=== PATIENT | female | born 1960 | race Caucasian/White ===

== ENCOUNTER 2016-08-30 17:02 | Emergency (ER) | payer OTHER ==
[~2016-08-30] VITALS: Ht 157.5 cm; Wt 84.0 kg
[~2016-08-30 17:02] MED LIST: ESOM20CA PO; HYDR12.56 PO; IBUP-1450 PO; LSN40 PO
[2016-08-30 17:05] VITALS: Ht 157.5 cm; Wt 84.0 kg
[2016-08-30] MEDS ORDERED: LISI40TA PO (17:55)
[2016-08-30] MEDS ORDERED: PRLSR20 PO (17:55)
[2016-08-30] MEDS ORDERED: ALPR1TAB3 PO (18:08)
[2016-08-30] MEDS ORDERED: METF1TAB85 PO (18:08)
--- NOTE | 2016-08-30 18:11 | EMERGENCY ROOM VISIT NOTE ---
ED Visit Note First contact with patient: 17:12 CHIEF COMPLAINT: Foot pain HISTORY OF PRESENT ILLNESS: This 56-year-old female patient presents to the emergency department ambulatory complaining of left foot pain. The patient states that both of her feet have been sore after working for the past several weeks. Over the past 1 week, she has had increasing pain in the left foot. The pain is located on the outside of the foot. She denies any specific injury to the foot at the onset of pain, but does state that she twisted the foot slightly walking out of a car yesterday, causing the pain to worsen. She rates the discomfort an 8/10. She has not recently changed shoes. She denies any significant swelling, bruising, redness or warmth of the foot. She has not been taking any medications at home for the pain. She denies any pain of the ankle. No previous injuries or surgeries to this foot. No numbness or weakness. REVIEW OF SYSTEMS: GENERAL: A 6 system review of systems was completed with positives and pertinent negatives in the HPI. ALLERGIES: See EMR MEDICATIONS: See med list PMH: Diabetes, asthma, hyperlipidemia SOCIAL HISTORY: The patient lives locally with her family. She is a smoker. She denies alcohol use. PHYSICAL EXAM: Vital Signs: Reviewed Nurse's notes, vital signs stable. GENERAL : This is a 56-year-old female, in no acute distress, but appears in pain, well- developed, well-nourished. MUSCULOSKELETAL: There is no visual deformity of the left foot. There is no erythema or ecchymosis. There is no warmth. There is no significant swelling. There is tenderness over the area of the fifth metatarsal. There is no tenderness over the lateral or medial malleolus. No tenderness of the tib/fib. The range of motion of the ankle is full. There is no tenderness over the plantar fascia. The skin is intact and there are no lacerations or puncture wounds. Dorsalis pedis pulse 2+. Capillary refill less than 2 seconds. RADIOGRAPHIC FINDINGS: LEFT FOOT MIN 3 VIEWS ROUTINE CLINICAL HISTORY: Lateral left foot pain. No recent trauma. COMPARISON: Left foot radiographs October 18, 2008. FINDINGS: The tarsometatarsal joints are intact. There is moderate plantar calcaneal spurring. No acute fracture is identified within the left foot by radiography. There is no evidence for stress fracture by radiography. There is mild arthritis within several articulations of the left foot. IMPRESSION: 1. No acute fracture or dislocation of the left foot. No radiographic evidence of a stress fracture. 2. Moderate plantar calcaneal spurring. 3. Mild arthritis within several articulations of the left foot. EMERGENCY DEPARTMENT COURSE: I examined the patient. An X-ray of the left foot was reviewed by myself and radiology and reveals mild arthritis, but no acute fractures or evidence of stress fracture. The patient was placed in a postoperative shoe. She was encouraged to use anti-inflammatories at home and follow-up with orthopedics for further evaluation of her foot pain. She verbalized understanding of my assessment and treatment plan. The patient was discharged home in good condition. DIAGNOSIS: Foot pain Problem List Medical Problems: (1) Anxiety Status: Chronic (2) Asthma, Unspecified Status: Chronic (3) Chronic Liver Dis Nec Status: Chronic (4) Diab Kaela Wo Compl, Type Ii Or Unspec Type, Not Uncntrld Status: Chronic (5) Esophageal Reflux Status: Chronic (6) Hyperlipidemia Nec/Nos Status: Chronic (7) Hypertension Nos Status: Chronic Current/Historical Medications Scheduled Alprazolam (Xanax), 1 MG PO BID Hydrochlorothiazide (Hctz), 12.5 MG PO DAILY Lisinopril (Zestril), 40 MG PO DAILY Metformin Hcl (Metformin Hcl Er), 1,000 MG PO BID Omeprazole (Prilosec), 20 MG PO DAILY Scheduled PRN Ibuprofen (Motrin), 600 MG PO BID PRN for Pain Allergies Coded Allergies: Iodinated Contrast Media (Verified Allergy, Intermediate, EARS SWELLED; PASSED OUT, 08/02/15) Cephalosporins (Verified Allergy, Unknown, "TO LONG AGO", 08/02/15) Ezetimibe (Verified Allergy, Unknown, NOT TOLERATED, 08/02/15) Penicillins (Verified Allergy, Unknown, SINCE , UNKNOWN REACTION, ) Statins (Verified Adverse Reaction, Mild, CRAMPING; NAUSEA, 08/02/15) Vital Signs Date Time Temp Pulse Resp B/P Pulse Ox O2 Delivery O2 Flow Rate FiO2 08/30/16 18:47 37.0 101 18 128/81 95 08/30/16 18:46 101 18 128/81 95 Room Air 08/30/16 17:05 37.0 109 18 133/84 95 Room Air Departure Information Impression Primary Impression: Foot pain Dispostion Home / Self-Care Condition GOOD Referrals Orlando Kaufman M.D. (PCP) Yan Covarrubias, DO Patient Instructions [facility] Additional Instructions For pain control, you can use the following [id number] medicines (if >12 yo): - Regular strength (325mg/tab) Tylenol (acetaminophen) 2 tabs every 4-6 hours as needed. Do not exceed 12 tablets in a 24 hour period. Avoid taking more than 4 grams (4000 mg) of Tylenol per day. This includes any other sources of acetaminophen you may take on a regular basis. - Regular strength (200 mg/tab) Advil (ibuprofen) 1-2 tabs every 4-6 hours as needed. Do not exceed a dose of 3200 mg per day. Follow-up with orthopedics for further evaluation of your foot pain. Wear the postoperative shoe as needed for your left foot pain.
--- NOTE | 2016-08-30 18:22 | DIAGNOSTIC IMAGING REPORT ---
LEFT FOOT MIN 3 VIEWS ROUTINE CLINICAL HISTORY: Lateral left foot pain. No recent trauma. COMPARISON: Left foot radiographs October 18, 2008. FINDINGS: The tarsometatarsal joints are intact. There is moderate plantar calcaneal spurring. No acute fracture is identified within the left foot by radiography. There is no evidence for stress fracture by radiography. There is mild arthritis within several articulations of the left foot. IMPRESSION: 1. No acute fracture or dislocation of the left foot. No radiographic evidence of a stress fracture. 2. Moderate plantar calcaneal spurring. 3. Mild arthritis within several articulations of the left foot. Electronically signed by: Guy Sepulveda M.D. 08/30/2016 6:21 PM Dictated Date/Time: 08/30/2016 6:18 PM
[2016-08-30 18:47] VITALS: BP 128/81; PULSE 101; TEMP 37; O2SAT 95
[2016-11-20] MEDS ORDERED: VITAMIN B12 INJ (13:35)
[2016-11-20] MEDS ORDERED: HYDR25TA5 PO (13:35)
[2016-11-20] MEDS ORDERED: MTR/600 PO (13:38)
== END 2016-08-30 18:48 | disposition home or self-care (01) ==
LOC: C.EDB 17:03 → C.EDD 18:48
DX: M79.672 Pain in left foot (principal); F17.200 Nicotine dependence, unspecified, uncomplicated; E11.9 Type 2 diabetes mellitus without complications; J45.909 Unspecified asthma, uncomplicated; E78.5 Hyperlipidemia, unspecified; I10 Essential (primary) hypertension

== ENCOUNTER 2016-10-09 07:09 | Emergency (ER) | payer OTHER ==
[~2016-10-09] VITALS: Ht 157.5 cm; Wt 79.7 kg
[~2016-10-09 07:09] MED LIST changes: +ALPR1TAB3 PO; -ESOM20CA PO; +LISI40TA PO; -LSN40 PO; +METF1TAB85 PO; +PRLSR20 PO
[2016-10-09 07:11] VITALS: TEMP 36.4; Ht 157.5 cm; Wt 79.7 kg
--- NOTE | 2016-10-09 08:39 | DIAGNOSTIC IMAGING REPORT ---
RIGHT KNEE 3 VIEWS CLINICAL HISTORY: Right knee pain. Trauma. COMPARISON: None. DISCUSSION: No acute fractures are visualized. There are mild osteoarthritic changes. There is a small dorsal patellar spur. There is minimal medial joint compartment spurring. IMPRESSION: Mild degenerative change. No acute fractures or dislocations identified. Electronically signed by: Chip Mirza M.D. 10/09/2016 8:38 AM Dictated Date/Time: 10/09/2016 8:37 AM
--- NOTE | 2016-10-09 08:57 | DIAGNOSTIC IMAGING REPORT ---
RIGHT LOWER EXTREMITY VENOUS DOPPLER HISTORY: RIGHT LEG PAIN Right COMPARISON STUDY: Venous Doppler 11/19/2014. FINDINGS: There is normal compressibility, flow, and augmentation within the right lower extremity deep venous system. IMPRESSION: No DVT within the right lower extremity Electronically signed by: Vimal Damon M.D. 10/09/2016 8:56 AM Dictated Date/Time: 10/09/2016 8:55 AM
[2016-10-09 09:20] VITALS: BP 126/71; PULSE 73; O2SAT 100
[2016-10-09] MEDS ORDERED: TRAM-10 PO ×2 (09:43→09:47)
--- NOTE | 2016-10-09 09:45 | EMERGENCY ROOM VISIT NOTE ---
ED Visit Note First contact with patient: 07:14 CHIEF COMPLAINT: Pain behind right knee since last night HISTORY OF PRESENT ILLNESS: Patient is a 56-year-old white female who presents emergency department for evaluation of right leg pain. She states that her symptoms started last evening. She has been noticing pain in her feet bilaterally for some time. 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 Yesterday she states that she was laying in her chair in the evening when she noticed an aching pain behind her right knee. She felt a "numb " feeling in her right lower leg, particularly in her foot. She also describes it as feeling like her foot was "on fire." She feels like the pain is tight in her leg once to staff. She took a baby aspirin. She states the pain was worse when she walks up the steps to go to bed and when she tried to bear weight. She denies any anterior knee pain or swelling. She does report a history of lumbar degenerative disc disease, but states that this primarily causes her back pain, and the pain she is expressing presently is not consistent with her prior back pain or sciatica. She states that she did have one epidural steroid injection and did PT and stretching exercises. She denies any falls, direct trauma to the right leg or any unusual activity prior to the onset of her pain. She denies noticing any significant swelling. She denies any thigh pain. She has no symptoms in the left leg. She denies chest pain, palpitations or shortness of breath. She is a smoker. No oral contraceptives or HRT. There has not been a long period of immobilization or long car or plane ride recently. There is no history of blood clots in the veins of the legs. She rates her pain an 8/10. REVIEW OF SYSTEMS: Review of systems as per HPI. All other systems reviewed were negative. 10 systems reviewed. PMH: Electronic medical records are reviewed and summarized as above/below. See Problem List. SOCIAL HISTORY: Patient lives at home. Smoker. Lives with her . 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 PHYSICAL EXAM: Vital Signs: Reviewed Nurse's notes. CONSTITUTIONAL: Patient is a well-appearing 56-year-old white female who is awake and alert and in no acute distress. HEART: Regular rate and rhythm without murmurs, ectopy, gallops, or rubs. LUNGS: Clear to auscultation and breath sounds equal, no wheezes, rales, or rhonchi. ABDOMEN: Soft, non-tender, no hepatosplenomegaly, or masses. NEUROLOGICAL: Alert oriented, coherent. PERRL, EOMs full, gait normal. EXTREMITIES: No cyanosis, edema, joint tenderness or effusion. Pulses equal bilaterally. Examination of the right knee does not note any prepatellar soft tissue swelling. No intra-articular joint effusion is palpable. No increased warmth or induration noted. She did not have any pain over the anterior portion of the knee. No peripatellar tenderness or crepitus. No medial or lateral joint line tenderness. She has pain on palpation of the popliteal space , but no obvious fullness or deformity. The range of motion is full. The calf is soft, just slightly tender proximally. Ankle is nontender to palpation. Distal pulses are easily palpable. Lower extremity DTRs are equal and symmetrical bilaterally. There is no edema. No cyanosis. No lymphangitic streaking. EMERGENCY DEPARTMENT COURSE: X-rays of the right knee and ultrasound of the right lower extremity were obtained. Patient declined analgesia. Ultrasound did not demonstrate DVT. X-ray of the knee noted mild degenerative changes. Differential diagnoses entertained included DVT, superficial thrombus phlebitis , cellulitis, gouty arthropathy, internal derangement of the right knee, degenerative joint disease, peripheral neuropathy, lumbar radiculopathy, among others. The patient was encouraged to continue the ibuprofen. She was given a prescription for Ultram. She notes that she is an appointment this afternoon at her primary care provider's office for hand pain. She is encouraged to keep this appointment. Patient was reviewed in the [facility] Prescription Drug Monitoring Program, and there were no red flags noted. RIGHT LOWER EXTREMITY VENOUS DOPPLER HISTORY: RIGHT LEG PAIN Right COMPARISON STUDY: Venous Doppler 11/19/2014. FINDINGS: There is normal compressibility, flow, and augmentation within the right lower extremity deep venous system. IMPRESSION: No DVT within the right lower extremity RIGHT KNEE 3 VIEWS CLINICAL HISTORY: Right knee pain. Trauma. COMPARISON: None. DISCUSSION: No acute fractures are visualized. There are mild osteoarthritic changes. There is a small dorsal patellar spur. There is minimal medial joint compartment spurring. IMPRESSION: Mild degenerative change. No acute fractures or dislocations identified. Problem List Medical Problems: (1) Anxiety Status: Chronic (2) Asthma, Unspecified Status: Chronic (3) Back pain Status: Chronic (4) Cephalgia Status: Resolved (5) Chronic Liver Dis Nec Status: Chronic (6) Diab Kaela Wo Compl, Type Ii Or Unspec Type, Not Uncntrld Status: Chronic (7) Esophageal Reflux Status: Chronic (8) Hyperlipidemia Nec/Nos Status: Chronic (9) Hypertension Nos Status: Chronic (10) Weakness Status: Resolved Current/Historical Medications Scheduled Alprazolam (Xanax), 1 MG PO BID Hydrochlorothiazide (Hctz), 12.5 MG PO DAILY Lisinopril (Zestril), 40 MG PO DAILY Metformin Hcl (Metformin Hcl Er), 1,000 MG PO BID Omeprazole (Prilosec), 20 MG PO DAILY Scheduled PRN Ibuprofen (Motrin), 600 MG PO BID PRN for Pain Tramadol (Ultram), 1-2 TAB PO Q4H PRN for Pain Allergies Coded Allergies: Iodinated Contrast Media (Verified Allergy, Intermediate, EARS SWELLED; PASSED OUT, 10/09/16) Cephalosporins (Verified Allergy, Unknown, "TO LONG AGO", 10/09/16) Ezetimibe (Verified Allergy, Unknown, NOT TOLERATED, 10/09/16) Penicillins (Verified Allergy, Unknown, SINCE , UNKNOWN REACTION, ) Statins (Verified Adverse Reaction, Mild, CRAMPING; NAUSEA, 10/09/16) Vital Signs Date Time Temp Pulse Resp B/P Pulse Ox O2 Delivery O2 Flow Rate FiO2 10/09/16 09:20 73 18 126/71 100 10/09/16 07:11 36.4 100 18 157/91 96 Room Air Departure Information Impression Primary Impression: Leg pain, right Prescriptions Tramadol (Ultram) 50 Mg Tab 1-2 TAB PO Q4H Y for Pain, #20 TAB For Initial Treatment Prov: Milagros Elizalde PA 10/09/16 Referrals Orlando Kaufman M.D. (PCP) Patient Instructions My [facility] Additional Instructions Tramadol (Ultram) 50mg: Take 1-2 pills every four hours for breakthrough pain. Avoid alcohol, operating machinery or dangerous equipment, working on ladders or roofs, DRIVING, or situations where being under the influence may be dangerous. It is recommended to use an [id number] stool softener such as Colace, 100mg twice daily while taking this medication to avoid constipation. . Ibuprofen(Motrin, Advil) may be used for fever or pain. Use 600mg every six hours as needed. Take with food. Avoid using more than 2400mg in a 24 hour period. Do not use 2400mg per day for more than three consecutive days without physician direction. Prolonged inappropriate use can lead to stomach upset or ulcers. This medication can be taken if you need to drive, work, or perform activities which may be dangerous when taking narcotic pain medication. (AND/OR) Acetaminophen(Tylenol) may be used for fever or pain. Use 1000mg every six hours as needed. Avoid using more than 3000mg in a 24 hour period. This medication can be taken if you need to drive, work, or perform activities which may be dangerous when taking narcotic pain medication. Ice compresses for 20 minutes at a time four times daily for 2-3 days. Rest and elevate your injury. Continue current medications. Return to the ER immediately for any numbness, tingling, severe pain, extreme swelling in the extremity or as needed. Follow-up with her primary care for a scheduled today, and with orthopedics as scheduled next week.
[2016-11-20] MEDS ORDERED: VITAMIN B12 INJ (13:35)
[2016-11-20] MEDS ORDERED: HYDR25TA5 PO (13:35)
[2016-11-20] MEDS ORDERED: MTR/600 PO (13:38)
== END 2016-10-09 09:55 | disposition home or self-care (01) ==
LOC: C.EDB 07:10 → C.EDA 09:55
DX: M79.604 Pain in right leg (principal); F41.9 Anxiety disorder, unspecified; J45.909 Unspecified asthma, uncomplicated; M54.9 Dorsalgia, unspecified; G89.29 Other chronic pain; K76.9 Liver disease, unspecified; E11.9 Type 2 diabetes mellitus without complications; K21.9 Gastro-esophageal reflux disease without esophagitis; E78.5 Hyperlipidemia, unspecified; I10 Essential (primary) hypertension; Z79.899 Other long term (current) drug therapy; F17.210 Nicotine dependence, cigarettes, uncomplicated

== ENCOUNTER → 2016-10-12 | Outpatient (CLI) | payer OTHER ==
[~2016-10-12] MED LIST changes: +CYAN10005 PO; +HYDR25TA5 PO; +KETO10TA PO; +METF-384 PO; +MTR/600 PO; +NXM/40 PO; +TRAM-10 PO; +VITAMIN B12 INJ
[2016-10-12 17:40] LABS: HEMATOCRIT 37.5 % (37-47); MEAN CELL VOLUME 83.9 fL (80-100); MEAN CORPUSCULAR HEMOGLOBIN 27.5 pg (25-34); MEAN CORPUSCULAR HGB CONC 32.8 g/dl (32-36); MEAN PLATELET VOLUME 10.8 fL (7.4-10.4); PLATELET COUNT 308 K/uL (130-400); RED BLOOD COUNT 4.47 M/uL (4.2-5.4); WHITE BLOOD COUNT 9.18 K/uL (4.8-10.8)
[2016-10-12 17:41] LABS: ALT/SGPT 23 U/L (12-78); BLOOD UREA NITROGEN 16 mg/dl (7-18); CALCIUM 9.5 mg/dl (8.5-10.1); CARBON DIOXIDE 29 mmol/L (21-32); CHLORIDE 105 mmol/L (98-107); CHOLESTEROL 235 mg/dl (0-200); CREATININE 0.82 mg/dl (0.60-1.20); GLUCOSE 82 mg/dl (70-99); SODIUM 142 mmol/L (136-145); TRIGLYCERIDES 149 mg/dl (0-150); VERY LOW DENSITY LIPOPROT CALC 30 mg/dl
[2016-10-12 17:50] LABS: ALB/GLOB RATIO 1.2 (0.9-2); ALKALINE PHOSPHATASE 72 U/L (45-117); AST/SGOT 19 U/L (15-37); CHOLESTEROL/HDL RATIO 4.4; HDL CHOLESTEROL 53 mg/dl; LDL CHOLESTEROL CALCULATED 152 mg/dl
[2016-10-12 18:08] LABS: BASO % 0.4 %; BASO ABS # 0.04 K/uL (0-0.2); COMPLETE YES; EOS % 2.3 %; IG% 0.1 %; LYMPH % 44.7 %; MONO % 4.8 %; NEUT % 47.7 %
[2016-10-13 06:55] LABS: HYPERSEGMENTED POLYS 1+
[2016-10-13 10:19] LABS: ESTIMATED AVERAGE GLUCOSE 143 mg/dl; HA1C FLAG Normal (Normal)
== END | disposition home or self-care (01) ==
LOC: C.LABBFT 15:45
PROVIDERS: ATTEND Physician Assistant Medical
DX: R20.0 Anesthesia of skin (principal); E11.9 Type 2 diabetes mellitus without complications

== ENCOUNTER → 2016-10-20 | Outpatient (CLI) | payer OTHER ==
[2016-10-20 18:08] LABS: LYME DISEASE AB IGG NEG (NEG); LYME DISEASE AB IGM NEG (NEG)
== END | disposition home or self-care (01) ==
LOC: C.LABBFT 15:28
PROVIDERS: ATTEND Physician Assistant Medical
DX: M79.673 Pain in unspecified foot (principal)

== ENCOUNTER → 2016-11-17 | Outpatient (CLI) | payer OTHER | END | disposition home or self-care (01) | LOC: C.LABBFT 12:11 | PROVIDERS: ATTEND Physician Assistant Medical | DX: E53.8 Deficiency of other specified B group vitamins (principal) ==

== ENCOUNTER → 2016-11-26 | Outpatient (CLI) | payer OTHER ==
[~2016-11-26] MED LIST changes: -HYDR12.56 PO; -IBUP-1450 PO; -TRAM-10 PO
[2016-11-26 12:33] LABS: CALCIUM 9.8 mg/dl (8.5-10.1)
[2016-11-26 12:42] LABS: BLOOD UREA NITROGEN 13 mg/dl (7-18); BUN/CREATININE RATIO 16.8 (10-20); CARBON DIOXIDE 29 mmol/L (21-32); CHLORIDE 103 mmol/L (98-107); CREATININE 0.79 mg/dl (0.60-1.20); GLUCOSE 111 mg/dl (70-99); POTASSIUM 3.9 mmol/L (3.5-5.1); SODIUM 141 mmol/L (136-145)
== END | disposition home or self-care (01) ==
LOC: C.LABBFT 11:01
PROVIDERS: ATTEND Nurse Practitioner
DX: R00.2 Palpitations (principal)

== ENCOUNTER → 2016-12-17 | Outpatient (CLI) | payer OTHER | END | disposition home or self-care (01) | LOC: C.LABBFT 15:19 | PROVIDERS: ATTEND Physician Assistant Medical | DX: E53.8 Deficiency of other specified B group vitamins (principal) ==

== ENCOUNTER 2017-03-23 08:22 | Emergency (ER) | payer SELFPAY ==
[~2017-03-23] VITALS: Ht 157.5 cm; Wt 83.2 kg
[~2017-03-23 08:22] MED LIST changes: -CYAN10005 PO; -KETO10TA PO; -METF-384 PO; -NXM/40 PO
[2017-03-23 08:29] VITALS: TEMP 36.8; Ht 157.5 cm; Wt 83.2 kg
[2017-03-23] MEDS ORDERED: CYAN10005 PO (08:46)
[2017-03-23] MEDS ORDERED: METF-384 PO (08:46)
[2017-03-23] MEDS ORDERED: NXM/40 PO (08:46)
[2017-03-23] MEDS ORDERED: DiphenhydrAMINE HCL 50 MG/ML VIAL IV STA (09:25)
[2017-03-23] MEDS ORDERED: METOCLOPRAMIDE HCL INJ 5 MG/ML 2 ML VIAL IM STA (09:25)
[2017-03-23] MEDS ORDERED: SODIUM CHLORIDE 0.9% 1000ML 1,000 ML IV STA (09:25)
[2017-03-23] MEDS ORDERED: KETOROLAC TROMETHAMINE 30 MG/ML VIAL IV STA (09:25)
--- NOTE | 2017-03-23 09:45 | DIAGNOSTIC IMAGING REPORT ---
CT SCAN OF THE BRAIN WITHOUT IV CONTRAST CLINICAL HISTORY: Headache. COMPARISON STUDY: CT of the brain dated 08/02/2015. TECHNIQUE: Unenhanced axial CT scan of the brain is performed from the vertex to the skull base. CT DOSE: 537.48 mGy.cm FINDINGS: Brain parenchyma: The brain parenchyma is normal in appearance. There is no hemorrhage, mass effect, or evidence of acute territorial ischemia by CT criteria. Lowe-white matter is preserved. No extra-axial fluid collection is seen. Ventricles, sulci, cisterns: Normal in configuration. Intracranial vasculature: There is mild atherosclerotic calcification of the cavernous carotid arteries. Calvarium: Unremarkable. Sinuses and mastoids: The visualized paranasal sinuses are clear. The mastoid air cells are well pneumatized. Orbits: The bony orbits are grossly intact. IMPRESSION: No acute intracranial abnormality. Electronically signed by: Pedro Mendez M.D. 03/23/2017 9:44 AM Dictated Date/Time: 03/23/2017 9:42 AM
[2017-03-23 09:50] LABS: URINE APPEARANCE CLEAR (CLEAR); URINE BILIRUBIN NEG (NEG); URINE COLOR YELLOW; URINE EPITHELIAL CELL AUTO 20-30 /lpf (0-5); URINE NITRITE NEG (NEG); URINE PH 5.5 (4.5-7.5); URINE SPECIFIC GRAVITY 1.014 (1.000-1.030); UROBILINOGEN NEG (NEG)
[2017-03-23 09:51] LABS: BASO % 0.7 %; BASO ABS # 0.06 K/uL (0-0.2); COMPLETE YES; EOS % 2.5 %; IG% 0.2 %; LYMPH % 29.1 %; LYMPH ABS # 2.63 K/uL (1.2-3.4); MEAN CELL VOLUME 87.6 fL (80-100); MEAN CORPUSCULAR HEMOGLOBIN 27.4 pg (25-34); MEAN CORPUSCULAR HGB CONC 31.3 g/dl (32-36); MEAN PLATELET VOLUME 11.4 fL (7.4-10.4); MONO % 6.2 %; NEUT % 61.3 %; PLATELET COUNT 278 K/uL (130-400); RED BLOOD COUNT 4.34 M/uL (4.2-5.4); WHITE BLOOD COUNT 9.05 K/uL (4.8-10.8)
[2017-03-23 10:00] LABS: BUN/CREATININE RATIO 21.2 (10-20); CREATININE 0.69 mg/dl (0.60-1.20); POTASSIUM 3.9 mmol/L (3.5-5.1)
[2017-03-23 10:08] LABS: MANUAL MICROSCOPIC REQUIRED? NO; REVIEW REQ? NO
[2017-03-23 10:37] LABS: LYME DISEASE AB IGG NEG (NEG); LYME DISEASE AB IGM NEG (NEG)
[2017-03-23] MEDS ORDERED: KETO10TA PO (11:04)
[2017-03-23 11:16] VITALS: BP 127/69; PULSE 74; O2SAT 99
--- NOTE | 2017-03-24 12:49 | EMERGENCY ROOM VISIT NOTE ---
ED Visit Note First contact with patient: 08:59 CHIEF COMPLAINT: I've had a severe headache for 5 days. HISTORY OF PRESENT ILLNESS: Ms. Jerez is a 59 year-old white female who ambulates into the ED accompanied by male friend complaining of a occipital headache. She reports a gradual onset of a severe headache that started approximately 5 days ago. The pain is constant and it is slowly increasing in severity. She denies previous similar headaches or history of headaches but does report this is the worst headache of her life. Currently she describes her discomfort as an achy sensation. It is located bilaterally but more prominent on the right. She rates her discomfort 10/10. She reports radiation down into the cervical spine to the level of C5. Her pain worsens with palpation and seems more prominent in the morning. She has been taken 600 mg of ibuprofen with mild relief of her discomfort but then she reports it returns. Associated with her pain she reports she feels like she is having neck weakness and sometimes feels like she has to hold up her head on her neck and feels like her neck is stiff. She also reports she has some paresthesias in the hands but reports she's had this previously from vitamin B- 12 deficiency; she has not had her B12 blood levels evaluated recently. She denies recent trauma, skin eruptions, skin color changes, fevers, chills, sweats, upper respiratory tract symptoms, sore throat, dental work/dental trauma , sinus congestion, visual changes, hearing changes, difficulty speaking, difficulty swallowing, difficulty ambulating/coronary body movements, upper respiratory tract symptoms abdominal pain, nausea/vomiting, lower back pain, extremity weakness, dizziness, lightheadedness, insect bites.. REVIEW OF SYSTEMS: As noted above in History of Present Illness; all body systems reviewed with the patient and found to be negative unless noted above. PAST MEDICAL HISTORY: (1) Anxiety (2) Asthma, Unspecified (3) Back pain (4) Cephalgia (5) Chronic Liver Dis Nec (6) Diab Kaela Wo Compl, Type Ii Or Unspec Type, Not Uncntrld (7) Esophageal Reflux (8) Hyperlipidemia Nec/Nos (9) Hypertension Nos (10) Weakness CURRENT MEDICATIONS: Medications Dose Route/Sig Max Daily Dose Days Date Category Vitamin B-12 (Cyanocobalamin) 1,000 Mcg Tab 1,000 Mcg PO DAILY 03/23/17 Reported Nexium (Esomeprazole Magnesium) 40 Mg Capcr 40 Mg PO DAILY 03/23/17 Reported Glucophage (Metformin Hcl) 1,000 Mg Tab 1,000 Mg PO BID 03/23/17 Reported Ibuprofen 600 Mg Tab 600 Mg PO Q8H PRN 11/20/16 Reported Hydrochlorothiazide 25 Mg Tab 25 Mg PO QAM 11/20/16 Reported Zestril (Lisinopril) 40 Mg Tab 40 Mg PO QAM 08/30/16 Reported Xanax (Alprazolam) 1 Mg Tab 1 Mg PO BID 10/04/13 Reported ALLERGIES TO MEDICATIONS: Cephalosporins, IV contrast, penicillin, statins, ezetimibe. SOCIAL HISTORY: Patient is currently employed; she feels safe in her home environment; she admits to tobacco use and denies alcohol use.. PHYSICAL EXAM: Vital Signs: Date Time Temp Pulse Resp B/P (MAP) Pulse Ox O2 Delivery O2 Flow Rate FiO2 03/23/17 11:16 74 16 127/69 99 Room Air 03/23/17 09:58 155/85 03/23/17 09:03 76 03/23/17 08:29 36.8 85 16 148/85 97 Room Air GENERAL: 57 year-old white female in moderate distress due to pain, afebrile and hemodynamically stable. NEUROLOGIC: Awake, alert and oriented to person place and time. Answering questions appropriately and following commands. Cranial nerves II-XII grossly intact. Good short-term and long-term recall. Cranial nerves II through XII grossly intact. Normal gait. Good hand eye coordination. SKIN: Warm, dry and pink. No rashes, lesions or soft tissue trauma noted. HEENT: Normocephalic, atraumatic. Skull: No bony deformity, bony crepitus or ecchymosis. Mild tenderness over the occipital skull. No raccoon's eyes or richey signs. No drainage in the ears and air; no hemotympanum. Face: No bony tenderness, swelling or ecchymosis. PERRLA. EOMI without nystagmus. Funduscopic examination is unremarkable with a normal-appearing optic disc and no signs of increased intercranial pressure. Sclera is white and conjunctiva pink without drainage. No nasal drainage. Oral cavity is moist and pink. There is mild dental decay but no signs of abscess. Airway is patent. Speech normal and clear. Trachea midline. No JVD. NECK: Mild tenderness throughout the paraspinous muscles and bony structures of the cervical spine. I do not appreciate any bony deformity, bony crepitus or step-offs. I do not appreciate any muscle spasm. I do not appreciate any meningismus. Decreased range of motion in all movements due to pain. No CVA tenderness. No bony thoracic or lumbar tenderness. THORAX: Lungs clear to auscultation and equal bilaterally with no wheezing, crackles, rhonchi or stridor and equal chest wall movements. HEART: Regular rate and rhythm with no murmurs, rubs or gallops. ABDOMEN: Soft and nontender with bowel sounds present in all quadrants; no rigidity, rebound tenderness, organomegaly or guarding. MUSCULOSKELETAL: Full range of motion of all joints without any significant discomfort and the gait is normal. ED COURSE: Patient is assessed with history and physical examination. Patient's medication list was reviewed. Laboratory Testing: Test 03/23/17 08:44 03/23/17 08:56 Range/Units Urine Color YELLOW Urine Appearance CLEAR CLEAR Urine pH 5.5 4.5-7.5 Urine Specific [place] 1.014 1.000-1.030 Urine Protein NEG NEG Urine Glucose (UA) NEG NEG Urine Ketones NEG NEG Urine Occult Blood TRACE NEG Urine Nitrite NEG NEG Urine Bilirubin NEG NEG Urine Urobilinogen NEG NEG Urine Leukocyte Esterase NEG NEG Urine WBC (Auto) 1-5 0-5 /hpf Urine RBC (Auto) 0-4 0-4 /hpf Urine Hyaline Casts (Auto) 1-5 0-5 /lpf Urine Epithelial Cells (Auto) 20-30 0-5 /lpf Urine Bacteria (Auto) NEG NEG White Blood Count 9.05 4.8-10.8 K/uL Red Blood Count 4.34 4.2-5.4 M/uL Hemoglobin 11.9 12.0-16.0 g/dL Hematocrit 38.0 37-47 % Mean Corpuscular Volume 87.6 80-100 fL Mean Corpuscular Hemoglobin 27.4 25-34 pg Mean Corpuscular Hemoglobin Concent 31.3 32-36 g/dl Platelet Count 278 130-400 K/uL Mean Platelet Volume 11.4 7.4-10.4 fL Neutrophils (%) (Auto) 61.3 % Lymphocytes (%) (Auto) 29.1 % Monocytes (%) (Auto) 6.2 % Eosinophils (%) (Auto) 2.5 % Basophils (%) (Auto) 0.7 % Neutrophils # (Auto) 5.55 1.4-6.5 K/uL Lymphocytes # (Auto) 2.63 1.2-3.4 K/uL Monocytes # (Auto) 0.56 0.11-0.59 K/uL Eosinophils # (Auto) 0.23 0-0.5 K/uL Basophils # (Auto) 0.06 0-0.2 K/uL RDW Standard Deviation 46.7 36.4-46.3 fL RDW Coefficient of Variation 14.4 11.5-14.5 % Immature Granulocyte % (Auto) 0.2 % Immature Granulocyte # (Auto) 0.02 0.00-0.02 K/uL Erythrocyte Sedimentation Rate 8 0-21 mm/hr Sodium Level 139 136-145 mmol/L Potassium Level 3.9 3.5-5.1 mmol/L Chloride Level 106 98-107 mmol/L Carbon Dioxide Level 29 21-32 mmol/L Anion Gap 4.0 3-11 mmol/L Blood Urea Nitrogen 15 7-18 mg/dl Creatinine 0.69 0.60-1.20 mg/dl Est Creatinine Clear Calc Drug Dose 91.0 ml/min Estimated GFR () 112.8 Estimated GFR (Non- 97.3 BUN/Creatinine Ratio 21.2 10-20 Random Glucose 133 70-99 mg/dl Calcium Level 9.0 8.5-10.1 mg/dl Lyme Disease IgG Antibody NEG NEG Lyme Disease IgM Antibody NEG NEG Head CT: Was reviewed by myself and read by the radiologist and shows no acute intracranial abnormalities. Patient was hydrated with normal saline and received 30 mg of Toradol IV, 10 mg of Reglan IV and 50 mg of Benadryl IV. Patient was reassessed multiple times during her stay in the emergency department. Patient's case was reviewed with Dr. Jack; we agreed on diagnostic approach, treatment, disposition and plan. We discussed the need for a possible spinal tap. Patient was educated about her condition and instructed on her treatment plan by Dr. Jack; she verbalized understanding and agreement with this plan. CLINICAL IMPRESSION: Acute headache. DECISION MAKING: -year-old female who presents for evaluation of headache. She is afebrile, well appearing, and hemodynamically stable. She has no signs of a sinus, dental , or ear infection and no evidence of meningismus. She is neurologically intact. I do not suspect a headache to be secondary to a subarachnoid hemorrhage, meningitis, encephalitis, or intracranial mass lesion. DISPOSITION: Patient was discharged to home in stable condition accompanied by by a male friend; prior to discharge she was reassessed and subjectively reported she was feeling better and rated her discomfort 7/10. DISCHARGE INSTRUCTIONS: Patient was prescribed Toradol 10 mg every 6 hours as needed for pain. Patient was encouraged to stay well-hydrated with increased clear fluids. Patient was encouraged to continue her other medications as prescribed. Patient was encouraged to follow-up with her PCP for recheck. Patient was encouraged return ED for worsening/uncontrolled pain, fevers, any new abnormal neurological symptoms or any new/concerning symptoms.
== END 2017-03-23 11:25 | disposition home or self-care (01) ==
LOC: C.EDB 08:24 → C.EDC 11:25
DX: R51 Headache (principal); E11.9 Type 2 diabetes mellitus without complications; I10 Essential (primary) hypertension; E78.5 Hyperlipidemia, unspecified; K21.9 Gastro-esophageal reflux disease without esophagitis; F41.9 Anxiety disorder, unspecified; K76.9 Liver disease, unspecified; J45.909 Unspecified asthma, uncomplicated; F17.200 Nicotine dependence, unspecified, uncomplicated; Z79.899 Other long term (current) drug therapy; Z88.0 Allergy status to penicillin; Z88.8 Allergy status to other drugs, medicaments and biological substances; Z91.041 Radiographic dye allergy status

== ENCOUNTER 2017-09-02 13:54 | Emergency (ER) | payer SELFPAY ==
[~2017-09-02] VITALS: Ht 157.5 cm; Wt 84.0 kg
[~2017-09-02 13:54] MED LIST changes: -ALPR1TAB3 PO; +CYAN10005 PO; -LISI40TA PO; +METF-384 PO; -METF1TAB85 PO; +NXM/40 PO; -PRLSR20 PO; -VITAMIN B12 INJ
[2017-09-02 13:58] VITALS: TEMP 36.9; Ht 157.5 cm; Wt 84.0 kg
[2017-09-02] MEDS ORDERED: OXYCODONE HCL IR 5 MG TAB (IMMEDIATE RELEASE) PO STA (15:53)
[2017-09-02] MEDS ORDERED: DULO60CA44 PO (16:19)
[2017-09-02] MEDS ORDERED: MIRT15TA2 PO (16:19)
[2017-09-02 16:28] LABS: BASO % 0.5 %; BASO ABS # 0.06 K/uL (0-0.2); EOS % 1.6 %; EOS ABS # 0.18 K/uL (0-0.5); HEMATOCRIT 39.5 % (37-47); HEMOGLOBIN 13.4 g/dL (12.0-16.0); IG# 0.04 K/uL (0.00-0.02); LYMPH % 26.6 %; LYMPH ABS # 2.96 K/uL (1.2-3.4); MEAN CELL VOLUME 84.8 fL (80-100); MEAN CORPUSCULAR HEMOGLOBIN 28.8 pg (25-34); MEAN CORPUSCULAR HGB CONC 33.9 g/dl (32-36); MEAN PLATELET VOLUME 10.9 fL (7.4-10.4); MONO % 7.3 %; MONO ABS # 0.81 K/uL (0.11-0.59); NEUT % 63.6 %; NEUT ABS # 7.07 K/uL (1.4-6.5); PLATELET COUNT 286 K/uL (130-400); RED CELL DISTRIBUTION WIDTH CV 14.5 % (11.5-14.5); RED CELL DISTRIBUTION WIDTH SD 44.5 fL (36.4-46.3); WHITE BLOOD COUNT 11.12 K/uL (4.8-10.8)
[2017-09-02 16:43] LABS: BLOOD UREA NITROGEN 12 mg/dl (7-18); CALCIUM 9.8 mg/dl (8.5-10.1); CARBON DIOXIDE 25 mmol/L (21-32); CREATININE 0.75 mg/dl (0.60-1.20); GLUCOSE 94 mg/dl (70-99); POTASSIUM 3.7 mmol/L (3.5-5.1); SODIUM 135 mmol/L (136-145)
--- NOTE | 2017-09-02 16:46 | DIAGNOSTIC IMAGING REPORT ---
CERVICAL SPINE 2 OR 3 VIEWS HISTORY: Pain. Neuropathy. L neck pain into L arm. No trauma COMPARISON: None. FINDINGS: The cervical spine is visualized from C1 through the superior endplate of T1. There is no fracture. No subluxation. Moderate degenerative disc change primarily from C5 through C7. Prevertebral soft tissues and the atlantodens interval are intact. IMPRESSION: Mild to moderate degenerative disc change the mid to lower cervical region. No acute process. The above report was generated using voice recognition software. It may contain grammatical, syntax or spelling errors. Electronically signed by: Taurus Pagan M.D. 09/02/2017 4:44 PM Dictated Date/Time: 09/02/2017 4:43 PM
[2017-09-02] MEDS ORDERED: LISI40TA PO (17:55)
[2017-09-02] MEDS ORDERED: ALPR1TAB3 PO (18:08)
[2017-09-02] MEDS ORDERED: GADAVIST IV PRN (18:15)
--- NOTE | 2017-09-02 18:32 | DIAGNOSTIC IMAGING REPORT ---
CERVICAL SPINE COMBO HISTORY: Pain. Neuropathy. L arm numbness, neck pain, leukocytosis TECHNIQUE: Multiplanar multisequence MRI of the cervical spine was performed both before and after the use of intravenous contrast. COMPARISON STUDY: None. FINDINGS: Normal signal character of the vertebral bodies. Normal signal characteristics the cervical cord. Mild degenerative disc changes throughout. No abnormal postcontrast enhancement on the sagittal images. C2-C3: No significant central canal or neural foraminal narrowing. C3-C4: No significant central canal or neural foraminal narrowing. C4-C5: No significant central canal or neural foraminal narrowing. C5-C6: Mild osteophytic narrowing of the neuroforamina bilaterally. C6-C7: Minimal osteophytic narrowing of the neuroforamina bilaterally C7-T1: No significant central canal or neural foraminal narrowing. IMPRESSION: 1. Mild degenerative disc change at the entire cervical region. 2. Slight disc bulge C5-C6 with mild osteophytic narrowing of the neuroforamina bilaterally. 3. Minimal osteophytic narrowing of the neuroforamina bilaterally. 4. No significant disc herniation or significant component of spinal stenosis. 5. No abnormal postcontrast enhancement The above report was generated using voice recognition software. It may contain grammatical, syntax or spelling errors. Electronically signed by: Taurus Pagan M.D. 09/02/2017 6:31 PM Dictated Date/Time: 09/02/2017 6:28 PM
[2017-09-02] MEDS ORDERED: OXYC1TAB3 PO (18:55)
[2017-09-02] MEDS ORDERED: OXYCODONE IR HOME PACK PO STA (18:55)
[2017-09-02] MEDS ORDERED: METH4PAK PO (18:55)
--- NOTE | 2017-09-02 18:55 | EMERGENCY ROOM VISIT NOTE ---
History First contact with patient: 15:43 Chief Complaint: SHOULDER PAIN Stated Complaint: SEVERE PAIN IN L SHOULDER NECK ARM, NUMB FINGER History of Present Illness The patient is a 57 year old female who presents to the Emergency Room via private vehicle with complaints of "severe pain in left shoulder, neck, arm, numb fingers". The patient states that for the past week she has had left neck and left shoulder pain radiating down to her fingers. She notes numbness in her hand and fingers. She states that there has been no injury. She does not however that about 2 weeks ago she was moving a couch with her left arm so that she could vacuum behind it. She rates her overall pain as an 8/10. There is no chest pain or shortness of breath. She has predominant right-handed. Review of Systems A complete 6-point Review of Systems was discussed with the patient, with pertinent positives and negatives listed in the History of Present Illness. All remaining Review of Systems questions can be considered negative unless otherwise specified. Past Medical/Surgical History Medical Problems: (1) Anxiety (2) Asthma, Unspecified (3) Back pain (4) Cephalgia (5) Chronic Liver Dis Nec (6) Diab Kaela Wo Compl, Type Ii Or Unspec Type, Not Uncntrld (7) Esophageal Reflux (8) Hyperlipidemia Nec/Nos (9) Hypertension Nos (10) Weakness Family History Diabetes mellitus FHx: cancer Gallbladder disease Social History Smoking Status: Current Every Day Smoker Alcohol Use: occasionally Marital Status: Housing Status: lives with significant other Occupation Status: employed Current/Historical Medications Scheduled Alprazolam (Xanax), 1 MG PO BID Cyanocobalamin (Vitamin B-12), 1,000 MCG PO DAILY Duloxetine Hcl (Cymbalta), 60 MG PO DAILY Esomeprazole Magnesium (Nexium), 40 MG PO DAILY Hydrochlorothiazide (Hydrochlorothiazide), 25 MG PO QAM Lisinopril (Zestril), 40 MG PO QAM Metformin Hcl (Glucophage), 1,000 MG PO BID Methylprednisolone (Medrol Dosepak), 0 PO DAILY Mirtazapine Soltab (Remeron Soltab), 15 MG PO HS Scheduled PRN Ibuprofen (Ibuprofen), 600 MG PO Q8H PRN for Pain Oxycodone Ir (Roxicodone Ir), 1-2 TAB PO Q4H PRN for Pain Allergies Coded Allergies: Iodinated Diagnostic Agents (Verified Allergy, Intermediate, EARS SWELLED ; PASSED OUT, 09/02/17) Cephalosporins (Verified Allergy, Unknown, "TOO LONG AGO", 03/23/17) Ezetimibe (Verified Allergy, Unknown, NOT TOLERATED, 03/23/17) Penicillins (Verified Allergy, Unknown, SINCE , UNKNOWN REACTION, 03/23) Statins (Verified Adverse Reaction, Mild, CRAMPING; NAUSEA, 03/23/17) Physical Exam Vital Signs Date Time Temp Pulse Resp B/P (MAP) Pulse Ox O2 Delivery O2 Flow Rate FiO2 09/02/17 19:07 75 16 134/76 98 09/02/17 18:30 75 16 116/76 98 Room Air 09/02/17 16:28 88 17 134/76 97 Room Air 09/02/17 13:58 36.9 102 17 160/94 97 Room Air Physical Exam VITAL SIGNS - Vital signs and nursing notes were reviewed. Stable. Hypertensive. Slightly tachycardic. GENERAL -57-year-old female appearing her stated age who is in no acute distress. Communicates well with provider and answers questions appropriately. SKIN - Without rashes. No petechiae or herpetic rashes. No evidence of shingles overlying the left neck or arm. HEAD - NC/AT. NECK - Neck with FROM. Tenderness overlying the left superior trapezius muscle. MUSCULOSKELETAL. There is tenderness of the superior trapezius muscle extending to the left shoulder. No bony tenderness. LUNGS - Chest wall symmetric without accessory muscle use, intercostals retractions, or central cyanosis. Normal vesicular breath sounds CTA B/L. No wheezes, rales, or rhonchi appreciated. CARDIAC - RRR with S1/S2. No murmur, rubs, or gallops appreciated. EXTREMITIES - No clubbing or peripheral cyanosis. No pretibial edema present. There is tenderness to palpation down the patient's left arm. She is neurovascularly intact in this region. Good kohinoor operator strength as well as reflexes in the bicipital region on the left. NEUROLOGIC - Cranial nerves II through XII grossly intact. Medical Decision & Procedures ER Provider Diagnostic Interpretation: CERVICAL SPINE 2 OR 3 VIEWS HISTORY: Pain. Neuropathy. L neck pain into L arm. No trauma COMPARISON: None. FINDINGS: The cervical spine is visualized from C1 through the superior endplate of T1. There is no fracture. No subluxation. Moderate degenerative disc change primarily from C5 through C7. Prevertebral soft tissues and the atlantodens interval are intact. IMPRESSION: Mild to moderate degenerative disc change the mid to lower cervical region. No acute process. The above report was generated using voice recognition software. It may contain grammatical, syntax or spelling errors. Electronically signed by: Taurus Pagan M.D. 09/02/2017 4:44 PM Dictated Date/Time: 09/02/2017 4:43 PM CERVICAL SPINE COMBO HISTORY: Pain. Neuropathy. L arm numbness, neck pain, leukocytosis TECHNIQUE: Multiplanar multisequence MRI of the cervical spine was performed both before and after the use of intravenous contrast. COMPARISON STUDY: None. FINDINGS: Normal signal character of the vertebral bodies. Normal signal characteristics the cervical cord. Mild degenerative disc changes throughout. No abnormal postcontrast enhancement on the sagittal images. C2-C3: No significant central canal or neural foraminal narrowing. C3-C4: No significant central canal or neural foraminal narrowing. C4-C5: No significant central canal or neural foraminal narrowing. C5-C6: Mild osteophytic narrowing of the neuroforamina bilaterally. C6-C7: Minimal osteophytic narrowing of the neuroforamina bilaterally C7-T1: No significant central canal or neural foraminal narrowing. IMPRESSION: 1. Mild degenerative disc change at the entire cervical region. 2. Slight disc bulge C5-C6 with mild osteophytic narrowing of the neuroforamina bilaterally. 3. Minimal osteophytic narrowing of the neuroforamina bilaterally. 4. No significant disc herniation or significant component of spinal stenosis. 5. No abnormal postcontrast enhancement The above report was generated using voice recognition software. It may contain grammatical, syntax or spelling errors. Electronically signed by: Taurus Pagan M.D. 09/02/2017 6:31 PM Dictated Date/Time: 09/02/2017 6:28 PM Laboratory Results 09/02/17 16:12 Red Blood Count 4.66, Mean Corpuscular Volume 84.8, Mean Corpuscular Hemoglobin 28.8, Mean Corpuscular Hemoglobin Concent 33.9, Mean Platelet Volume 10.9, Neutrophils (%) (Auto) 63.6, Lymphocytes (%) (Auto) 26.6, Monocytes (%) (Auto) 7.3, Eosinophils (%) (Auto) 1.6, Basophils (%) (Auto) 0.5, Neutrophils # (Auto) 7.07, Lymphocytes # (Auto) 2.96, Monocytes # (Auto) 0.81, Eosinophils # (Auto) 0.18, Basophils # (Auto) 0.06 09/02/17 16:12 Test 09/02/17 16:12 White Blood Count 11.12 K/uL (4.8-10.8) Red Blood Count 4.66 M/uL (4.2-5.4) Hemoglobin 13.4 g/dL (12.0-16.0) Hematocrit 39.5 % (37-47) Mean Corpuscular Volume 84.8 fL (80-100) Mean Corpuscular Hemoglobin 28.8 pg (25-34) Mean Corpuscular Hemoglobin Concent 33.9 g/dl (32-36) Platelet Count 286 K/uL (130-400) Mean Platelet Volume 10.9 fL (7.4-10.4) Neutrophils (%) (Auto) 63.6 % Lymphocytes (%) (Auto) 26.6 % Monocytes (%) (Auto) 7.3 % Eosinophils (%) (Auto) 1.6 % Basophils (%) (Auto) 0.5 % Neutrophils # (Auto) 7.07 K/uL (1.4-6.5) Lymphocytes # (Auto) 2.96 K/uL (1.2-3.4) Monocytes # (Auto) 0.81 K/uL (0.11-0.59) Eosinophils # (Auto) 0.18 K/uL (0-0.5) Basophils # (Auto) 0.06 K/uL (0-0.2) RDW Standard Deviation 44.5 fL (36.4-46.3) RDW Coefficient of Variation 14.5 % (11.5-14.5) Immature Granulocyte % (Auto) 0.4 % Immature Granulocyte # (Auto) 0.04 K/uL (0.00-0.02) Anion Gap 9.0 mmol/L (3-11) Est Creatinine Clear Calc Drug Dose 84.2 ml/min Estimated GFR () 103.3 Estimated GFR (Non- 89.1 BUN/Creatinine Ratio 16.6 (10-20) Calcium Level 9.8 mg/dl (8.5-10.1) Troponin I < 0.015 ng/ml (0-0.045) Medications Administered Medications (Trade) Dose Ordered Sig/Serafin Route Start Time Stop Time Status Last Admin Dose Admin Oxycodone HCl (Roxicodone Immediate Rel Tab) 5 mg NOW STAT PO 09/02/17 15:53 09/02/17 15:54 DC 09/02/17 15:53 5 MG Oxycodone HCl (Roxicodone Immediate Rel 5MG Home Pack) 1 homepack UD STAT PO 09/02/17 18:55 09/02/17 18:57 DC 09/02/17 18:55 1 HOMEPACK Medical Decision Patient was seen and evaluated as above. After obtaining a thorough history and physical examination the above work up was performed. She presents to us today with radicular symptoms from the left side of the neck to the left hand. It is reproducible with examination, she does have tense paraspinous musculature of the superior lateral trapezius muscle on the left. X-ray was obtained. Some degenerative change noted. Patient's CBC does reveal small leukocytosis. Case was discussed with the attending physician, and decision was made to obtain a cervical spine MRI with and without contrast secondary to leukocytosis, patient presentation, and x-ray findings. I discussed with the patient benefits versus risk of the MRI prior to performing. Results of the MRI as above. She does have a small disc bulge, which I believe fits with the correct dermatome of her presentation today. She'll be given oxycodone as well as a Medrol Dosepak with referral to spine, Dr. Covarrubias. Bedside EKG per my interpretation reveals normal sinus rhythm, rate of 93 bpm. This was compared with EKG of June 2014 and no significant change was found. There is no evidence of FL or emergent process. I do not suspect cardiac cause as her symptoms are reproducible on exam. The patient was educated upon management, had questions answered prior to discharge, and was discharged home in good condition. No red flags the [place] drug monitoring system. Patient was educated the Medrol Dosepak could elevate her sugars. Case was discussed with the attending physician I attest that I have personally reviewed the patient medication list. The patient's blood pressure was reviewed and was found to be elevated I believe secondary to situation In the evaluation and treatment of this patient the following differential diagnoses were entertained: Musculoskeletal Strain, Discitis, Cervical Spine Fracture, Cervical Spine Dislocation, Cervical Spine Subluxation, Cervical Spondylosis, Fibromyalgia, Osteoarthritis, Polymyalgia Rheumatica, Psychogenic Pain Disorder, Tumor of Soft Tissue or Spine. Impression Primary Impression: Cervical radicular pain Departure Information Dispostion Home / Self-Care Condition GOOD Prescriptions Methylprednisolone (MEDROL DOSEPAK) 4 Mg Roderick 0 PO DAILY, #1 PKT Prov: Jordi Smith PA-C 09/02/17 Oxycodone Ir (Roxicodone Ir) 5 Mg Tab 1-2 TAB PO Q4H Y for Pain, #15 TAB For Initial Treatment Prov: Jordi Smith PA-C 09/02/17 Referrals [facility] (PCP) Yan Covarrubias, DO Patient Instructions My [facility] Additional Instructions You have been treated in the Emergency Department for a neck pain. You have received pain medicine in the emergency department which impairs your ability to operate a vehicle. You have been prescribed Oxy IR to be used for pain control. This is a narcotic medication. You cannot drive or consume alcohol while on this medicine. This medicine should only be used for pain that cannot be controlled with over-the- counter pain medicines. You have been prescribed a Medrol Dosepak. Take this medication as prescribed. You should take the COMPLETE 6-day course of this medication. This is an anti- inflammatory medicine that will help to minimize your symptoms. For pain control, you can use the following [id number] medicines: - Regular strength (325mg/tab) Tylenol (acetaminophen) 2 tabs every 4-6 hours as needed. Do not exceed 12 tablets in a 24 hour period. Avoid taking more than 3 grams (3000 mg) of Tylenol per day. This includes any other sources of acetaminophen you may take on a regular basis. - Regular strength (200 mg/tab) Advil (ibuprofen) 1-2 tabs every 4-6 hours as needed. Do not exceed a dose of 3200 mg per day. You should schedule a follow-up appointment in 2-3 days with your Primary Care Provider and Dr. Covarrubias. Return to the Emergency Department if your current symptoms worsen despite treatment course outlined above, or if you develop any of the following symptoms : intractable pain despite aforementioned treatment course, visual disturbances , loss of vision, unilateral weakness or facial drooping, slurring of speech, loss of coordination, or loss of consciousness.
[2017-09-02 19:07] VITALS: BP 134/76; PULSE 75; O2SAT 98
== END 2017-09-02 19:08 | disposition home or self-care (01) ==
LOC: C.EDB 13:55
DX: M54.12 Radiculopathy, cervical region (principal); D72.829 Elevated white blood cell count, unspecified; M50.222 Other cervical disc displacement at C5-C6 level; F41.9 Anxiety disorder, unspecified; J45.909 Unspecified asthma, uncomplicated; K76.9 Liver disease, unspecified; E11.9 Type 2 diabetes mellitus without complications; E78.5 Hyperlipidemia, unspecified; I10 Essential (primary) hypertension; K21.9 Gastro-esophageal reflux disease without esophagitis; F17.200 Nicotine dependence, unspecified, uncomplicated; Z83.3 Family history of diabetes mellitus; Z79.84 Long term (current) use of oral hypoglycemic drugs